=== PATIENT | female | born 1985 | race Caucasian/White ===

== ENCOUNTER 2017-07-24 20:17 | Emergency (ER) | payer OTHER ==
[~2017-07-24] VITALS: Ht 172.7 cm; Wt 99.8 kg
[~2017-07-24 20:17] MED LIST: ADIPEX-P37.5 MG PO; AMBIEN 10 MG TA10 MG; AMBIEN 5 MG TABL5 M1 PO; ATIVAN1 MG; ATIVAN1 MG PO; AUGMENTIN 875-1 EACH PO; AZO1 EACH MC; BELSOMRA15 MG PO; BENADRYL25 MG; BENTYL 10 MG CA10 M1 PO; BRINTELLIX10 MG PO; BUSPAR15 MG PO; COLACE100 MG; CONCEPT OB CAP1 EACH PO; CRESTOR5 MG; CYMBALTA60 MG; DEPAKOTE ER500 MG; DEPAKOTE500 MG PO; DEXILANT30 MG PO; DIPHENHIST50 MG PO; HYDROCODONE-AP1 EAC6 PO; IBUPROFEN 800800 M1 PO; KEFLEX; LAMICTAL 25 MG25 M1; LEXAPRO 10 MG T10 M2 PO; LIPITOR10 MG PO; LOVAZA1000 MG; MACROBID 100 M100 M1 PO; NEURONTIN 300300 M1; OXYCODONE-ACET1 EACH; OXYCONTIN15 MG; PERCOCET 5-3251 EACH PO; PERCOCET 7.5-31 EACH PO; PHENERGAN25 M2 RECTAL; PREDNISONE 20 M20 MG PO; PRILOSEC20 MG PO; PYRIDIUM100 MG; RESTORIL15 MG PO; VALIUM2 MG PO; VISTARIL 25 MG25 M1; XANAX 0.25 MG0.25 MG PO; XANAX1 MG PO; ZOFRAN ODT4 MG PO; ZOFRAN4 MG PO; [UNRECOGNIZED DRUG - OTHER]; keflex
[2017-07-24 20:39] VITALS: BP 111/63
== END 2017-07-24 20:40 | disposition left against medical advice (07) ==
LOC: M.ERS 20:17
DX: T42.4X1A Poisoning by benzodiazepines, accidental (unintentional), initial encounter (principal); F41.9 Anxiety disorder, unspecified; Z98.890 Other specified postprocedural states; Z90.711 Acquired absence of uterus with remaining cervical stump; Y92.89 Other specified places as the place of occurrence of the external cause

== ENCOUNTER 2020-07-26 15:37 | Emergency (ER) | payer OTHER ==
[~2020-07-26] VITALS: Ht 170.2 cm; Wt 92.5 kg
[2020-07-26] MEDS ORDERED: WELLBUTRIN SR150 M1 PO (15:50)
[2020-07-26] MEDS ORDERED: KLOR-CON 10 ER10 MEQ PO (15:50)
[2020-07-26] MEDS ORDERED: LAMICTAL100 MG PO (15:50)
[2020-07-26] MEDS ORDERED: PROTONIX40 M2 PO (15:51)
[2020-07-26 15:52] LABS: URINE BILIRUBIN NEGATIVE (Negative); URINE BLOOD NEGATIVE (Negative); URINE CLARITY CLEAR; URINE COLOR YELLOW; URINE GLUCOSE-RANDOM NEGATIVE (Negative); URINE KETONES NEGATIVE (Negative); URINE LEUKOCYTES-REFLEX NEGATIVE (Negative); URINE NITRITE-REFLEX NEGATIVE (Negative); URINE PROTEIN NEGATIVE (Negative); URINE SPECIFIC GRAVITY <= 1.005 (1.005-1.030); URINE UROBILINOGEN 0.2 E.U./dl (0.2-1.0)
[2020-07-26 16:14] LABS: INFLUENZA A ANTIGEN Negative (Negative); INFLUENZA B ANTIGEN Negative (Negative)
[2020-07-26 16:52] LABS: ABSOLUTE EOSINOPHILS 0.1 thou/uL (0.0-0.7); ABSOLUTE MONOCYTES 0.4 thou/uL (0.0-1.2); ABSOLUTE NEUTROPHILS 5.3 thou/uL (1.6-8.1); BASOPHILS 0.3 %; EOSINOPHILS 0.8 %; HEMATOCRIT 36.9 % (37.0-47.0); HEMOGLOBIN 12.9 gm/dL (12.0-15.0); LYMPHOCYTES 15.4 %; MCH 31.7 pg (26.0-34.0); MCHC 34.9 g/dL (28.0-37.0); MCV 90.7 fL (80.0-100.0); MONOCYTES 5.4 %; MPV 6.8 fl. (7.2-11.1); NUCLEATED RBCS 0 /100WBC; PLATELET COUNT* 301 thou/uL (150-400); POLYS 78.1 %; RBC 4.07 mil/uL (4.20-5.00); RDW-CV 13.2 % (10.5-14.5); WBC 6.8 thou/uL (4.0-11.0)
[2020-07-26 17:00] LABS: CALCIUM 8.7 mg/dL (8.5-10.1); CREATININE 0.9 mg/dL (0.6-1.3); POTASSIUM 3.8 mmol/L (3.5-5.1)
[2020-07-26 17:05] LABS: ALBUMIN 3.9 g/dL (3.4-5.0); MAGNESIUM 2.2 mg/dL (1.8-2.4); TOTAL BILIRUBIN 0.4 mg/dL (<0.1-1.0); TOTAL PROTEIN 7.2 g/dL (6.4-8.2)
[2020-07-26] MEDS ORDERED: PHENERGAN 25 MG25 M1 PO ×2 (17:50→19:13)
[2020-07-26] MEDS ORDERED: TRANSDERM-SCOP1 EACH TRANSDERM (17:50)
[2020-07-26] MEDS ORDERED: MECLIZINE HCL25 MG PO (19:13)
[2020-07-26 19:24] VITALS: BP 121/80
--- NOTE | 2020-07-27 13:59 | EKG ---
[place] [address] ELECTROCARDIOGRAM REPORT Name: ASHLEY RENTERIA Room: [facility]#: [id number] Admission: 07/26/20 Attend Phys: Discharge: 07/26/20 Date of : 87 Date of Service: 07/26/201649 Report #: [id number] THIS REPORT FOR: //name// [facility] ED Test Date: 2020-07-26 Test Time: 16:50:55 Pat Name: ASHLEY RENTERIA Department: Room: Gender: F [employer]: [place] : 1985 Requested By: Vesna Mcdonald Order Number: [id number] MD: Daniel Lao Measurements Intervals [place] Rate: 100 P: 37 AK: 165 QRS: 18 QRSD: 78 T: QT: 415 QTc: 536 Interpretive Statements Sinus tachycardia Borderline abnrm T, anterolateral leads Prolonged QT interval Compared to ECG 07/19/2015 09:34:17 Prolonged QT interval now present Sinus rhythm no longer present Electronically Signed On 07-27-2020 13:59:45 [employer]NALY[employer] by Daniel Lao [email or web address] <ELECTRONICALLY SIGNED> By: Daniel Lao MD, FACC 07/27/20 1359 1650 1650 Daniel Lao MD, FAC /EPI
== END 2020-07-26 19:25 | disposition home or self-care (01) ==
LOC: M.ERS 15:37
PROVIDERS: Nurse Practitioner Family
DX: R42 Dizziness and giddiness (principal); R73.9 Hyperglycemia, unspecified; Z20.828 Contact with and (suspected) exposure to other viral communicable diseases; F17.210 Nicotine dependence, cigarettes, uncomplicated; Z98.890 Other specified postprocedural states; Z90.49 Acquired absence of other specified parts of digestive tract; Z90.89 Acquired absence of other organs; Z90.711 Acquired absence of uterus with remaining cervical stump; Z88.2 Allergy status to sulfonamides; Z88.1 Allergy status to other antibiotic agents